=== PATIENT | female | born 1965 | race Asian ===

== ENCOUNTER 2023-08-15 23:42 | Inpatient (IN) | payer MEDICAID ==
[~2023-08-15] VITALS: Ht 152.4 cm; Wt 63.5 kg
[2023-08-16] MEDS ORDERED: CHOL400C5 PO (00:18)
[2023-08-16] MEDS ORDERED: INSU100V36 SQ (00:18)
[2023-08-16] MEDS ORDERED: LISI10TA29 PO (00:18)
[2023-08-16] MEDS ORDERED: ALLO100T56 PO (00:18)
[2023-08-16] MEDS ORDERED: ASCO500C18 PO (00:18)
[2023-08-16] MEDS ORDERED: INSU100I26 SQ (00:18)
[2023-08-16] MEDS ORDERED: DULA0.75 SQ (00:18)
[2023-08-16] MEDS ORDERED: AMLO10TA59 PO (00:18)
[2023-08-16] MEDS ORDERED: ATOR20TA PO (00:18)
[2023-08-16] MEDS ORDERED: HYDR25TA4 PO (00:18)
[2023-08-16] MEDS ORDERED: METO50TA16 PO (00:18)
[2023-08-16] MEDS ORDERED: METO25TA6 PO (00:18)
[2023-08-16] MEDS ORDERED: VANCOMYCIN IV 1,000 MG in IV DEXTROSE 5% 250 ML IV ONE (01:15)
[2023-08-16] MEDS ORDERED: IV NORMAL SALINE 1000 ML BAG IV ONE (01:15)
[2023-08-16] MEDS ORDERED: CLINDAMYCIN PHOSPHATE IV 600 MG in IV DEXTROSE 5% 100 ML IV ONE (01:15)
[2023-08-16] MEDS ORDERED: ONDANSETRON 4 MG/2 ML VIAL IV ONE ×2 (01:30→06:30)
[2023-08-16] MEDS ORDERED: HYDROMORPHONE 1 MG/1 ML DISP.SYRIN IV ONE ×2 (01:30→06:30)
[2023-08-16] MEDS ORDERED: VANCOMYCIN IV 200 ML ONE (01:32)
[2023-08-16] MEDS ORDERED: ONDANSETRON 4 MG/2 ML VIAL ONE ×2 (01:32→06:41)
[2023-08-16] MEDS ORDERED: HYDROMORPHONE 1 MG/1 ML DISP.SYRIN ONE ×2 (01:32→06:30)
[2023-08-16] MEDS ORDERED: CLINDAMYCIN 600 MG PIGGYBACK**ER OMNI IV ONE (01:33)
[2023-08-16 01:44] LABS: CALCIUM 8.8 mg/dL (8.5-10.1); CARBON DIOXIDE 27 mmol/L (21-32); CHLORIDE 102 mmol/L (98-107); CREATININE 1.1 mg/dL (0.6-1.3); GLUCOSE 108 mg/dL (74-106); POTASSIUM 3.2 mmol/L (3.5-5.1); SODIUM SERUM 139 mmol/L (136-145); UREA NITROGEN, BLOOD 21 mg/dL (7-18)
[2023-08-16 01:50] LABS: BASOPHILS % (AUTO) 0.5 % (0.0-2.0); EOSINOPHILS # (AUTO) 0.4 K/uL (0.0-0.7); EOSINOPHILS % (AUTO) 4.1 % (0.0-7.0); HEMATOCRIT 44.7 % (31.2-41.9); HEMOGLOBIN 15.5 g/dL (10.9-14.3); LYMPHOCYTES # (AUTO) 1.6 K/uL (0.8-4.8); MEAN CORPUSCULAR HGB CONC 35 g/dL (32.3-35.6); MEAN CORPUSCULAR VOLUME 89.8 fL (75.5-95.3); MONOCYTES # (AUTO) 0.7 K/uL (0.1-1.30); MONOCYTES % (AUTO) 7.7 % (0.0-11.0); NEUTROPHILS # (AUTO) 6.7 K/uL (1.8-8.9); NEUTROPHILS % (AUTO) 70.7 % (38.5-71.5); PLATELET COUNT (AUTO) 255 K/uL (179-408); RED BLOOD CELL COUNT(AUTO) 4.98 MIL/uL (3.63-4.92); RED CELL DISTRIBUTION WIDTH 12.4 % (12.3-17.7); WHITE BLOOD COUNT (AUTO) 9.5 K/uL (3.8-11.8)
[2023-08-16 01:52] LABS: DIFFERENTIAL COMMENT 1
[2023-08-16 01:58] LABS: ALANINE AMINOTRANSFERASE 26 U/L (14-59); ALKALINE PHOSPHATASE 122 U/L (50-136); ASPARTATE AMINOTRANSFERASE 17 U/L (15-37); BILIRUBIN,DIRECT 0.1 mg/dL (0.0-0.2); BILIRUBIN,TOTAL 0.3 mg/dL (0.2-1.0); NT-PRO BNP 73 pg/mL (0-125); TOTAL PROTEIN, SERUM 7.2 g/dL (6.4-8.2)
[2023-08-16] MEDS ORDERED: ACETAMINOPHEN 325 MG TABLET PO PRN (05:45)
[2023-08-16] MEDS ORDERED: REMEDY ESSENTIAL ZINC PASTE 113 GM TP PRN (05:45)
[2023-08-16] MEDS ORDERED: ONDANSETRON 4 MG/2 ML VIAL IV PRN (05:45)
[2023-08-16] MEDS ORDERED: TEMAZEPAM 15 MG CAPSULE PO PRN (05:45)
[2023-08-16] MEDS ORDERED: MAGNESIUM HYDROXIDE 30 ML LIQUID UDC PO PRN (05:45)
[2023-08-16] MEDS ORDERED: DEXTROSE 50% 50 ML DISP.SYRIN IV PRN (05:45)
[2023-08-16] MEDS: PANTOPRAZOLE SODIUM 40 MG TABLET.DR PO SCH (07:42)
[2023-08-16] MEDS: BLOOD SUGAR DIAGNOSTIC 1 EACH STRIP VI SCH ×4 (07:43→20:25)
[2023-08-16] MEDS: INSULIN REGULAR, HUMAN 300 UNIT/3 ML VIAL SQ PRN ×4 (07:45→20:24)
[2023-08-16] MEDS: IV NS 1000 ML 1,000 ML IV PRN ×2 (07:48→23:12)
[2023-08-16] MEDS: POTASSIUM CHLORIDE 20 MEQ TAB.PRT.SR PO SCH ×2 (12:21→14:03)
[2023-08-16] MEDS: HYDROCODONE/APAP 5-325MG TABLET PO PRN ×2 (13:16→20:35)
[2023-08-16] MEDS ORDERED: MEROPENEM 1 G in IV NORMAL SALINE 100 ML IV SCH (14:00)
[2023-08-16] MEDS ORDERED: LISI20TA30 PO (14:58)
[2023-08-16] MEDS ORDERED: ATOR40TA PO (14:58)
[2023-08-16] MEDS ORDERED: ACET-2030 PO (15:01)
[2023-08-16] MEDS ORDERED: METO-356 PO (15:01)
[2023-08-16] MEDS ORDERED: IBUP-1953 PO (15:03)
[2023-08-16 16:00] VITALS: BP 145/84; TEMP 97.9; O2SAT 97
[2023-08-16] MEDS: AMLODIPINE 10 MG TABLET PO SCH (16:54)
[2023-08-16] MEDS: METOPROLOL SUCCINATE XL 25 MG TAB.SR.24H PO SCH (16:58)
[2023-08-16] MEDS ORDERED: ASCORBIC ACID 500 MG TABLET PO SCH (17:00)
[2023-08-16] MEDS: ATORVASTATIN 40 MG TABLET PO SCH (20:16)
[2023-08-16 20:38] VITALS: BP 144/90; TEMP 99; O2SAT 98
[2023-08-16] MEDS ORDERED: INSULIN GLARGINE,HUM 300 UNITS/3 ML CARTRIDGE SQ SCH (21:00)
[2023-08-17] MEDS: HYDROCODONE/APAP 10-325 MG TABLET PO PRN ×3 (02:06→20:31)
[2023-08-17] MEDS ORDERED: VANCOMYCIN IV 1,000 MG in IV DEXTROSE 5% 250 ML IV SCH (02:30)
[2023-08-17 04:50] VITALS: BP 154/79; TEMP 98.6; O2SAT 96
[2023-08-17] MEDS: PANTOPRAZOLE SODIUM 40 MG TABLET.DR PO SCH (06:05)
[2023-08-17 06:20] LABS: CALCIUM 7.8 mg/dL (8.5-10.1); CREATININE 1.1 mg/dL (0.6-1.3); MAGNESIUM 1.6 mg/dL (1.8-2.4); PHOSPHOROUS 2.4 mg/dL (2.5-4.9); POTASSIUM 3.5 mmol/L (3.5-5.1)
[2023-08-17 06:30] LABS: THYROID STIMULATING HORMONE 1.699 mIU/mL (0.358-3.740)
[2023-08-17] MEDS: BLOOD SUGAR DIAGNOSTIC 1 EACH STRIP VI SCH ×4 (06:39→20:33)
[2023-08-17 06:47] LABS: BASOPHILS # (AUTO) 0.1 K/UL (0.0-0.2); BASOPHILS % (AUTO) 0.9 % (0.0-2.0); DIFFERENTIAL COMMENT 0; EOSINOPHILS # (AUTO) 0.4 K/uL (0.0-0.7); EOSINOPHILS % (AUTO) 5.6 % (0.0-7.0); HEMATOCRIT 38.7 % (31.2-41.9); HEMOGLOBIN 13.2 g/dL (10.9-14.3); LYMPHOCYTES # (AUTO) 1.5 K/uL (0.8-4.8); LYMPHOCYTES % (AUTO) 22.1 % (20.5-51.5); MEAN CORPUSCULAR HEMOGLOBIN 30.8 uug (24.7-32.8); MEAN CORPUSCULAR HGB CONC 34 g/dL (32.3-35.6); MEAN CORPUSCULAR VOLUME 90.2 fL (75.5-95.3); MONOCYTES # (AUTO) 0.4 K/uL (0.1-1.30); MONOCYTES % (AUTO) 6.6 % (0.0-11.0); NEUTROPHILS # (AUTO) 4.4 K/uL (1.8-8.9); NEUTROPHILS % (AUTO) 64.8 % (38.5-71.5); PLATELET COUNT (AUTO) 213 K/uL (179-408); RED BLOOD CELL COUNT(AUTO) 4.29 MIL/uL (3.63-4.92); RED CELL DISTRIBUTION WIDTH 12.4 % (12.3-17.7); WHITE BLOOD COUNT (AUTO) 6.8 K/uL (3.8-11.8)
[2023-08-17 08:00] VITALS: BP 147/90; TEMP 97.6; O2SAT 98
[2023-08-17] MEDS ORDERED: NEUTRA PHOS PACKET PO ONE (09:00)
[2023-08-17] MEDS: HYDROCHLOROTHIAZIDE 25 MG TABLET PO SCH (09:24)
[2023-08-17] MEDS: AMLODIPINE 10 MG TABLET PO SCH (09:24)
[2023-08-17] MEDS: METOPROLOL SUCCINATE XL 25 MG TAB.SR.24H PO SCH (09:24)
[2023-08-17] MEDS: MAGNESIUM SULFATE/D5W 100 ML IV SCH ×2 (09:32→11:44)
[2023-08-17 11:13] VITALS: BP 138/77; TEMP 98.6; O2SAT 96
[2023-08-17] MEDS: INSULIN REGULAR, HUMAN 300 UNIT/3 ML VIAL SQ PRN ×3 (11:59→20:37)
[2023-08-17] MEDS ORDERED: diphenhydrAMINE 25 MG CAP PO PRN (12:00)
[2023-08-17] MEDS: MEROPENEM 0.5 G in IV NORMAL SALINE 50 ML IV SCH ×3 (12:53→21:35)
[2023-08-17 15:08] VITALS: BP 132/88; TEMP 98; O2SAT 96
[2023-08-17] MEDS: MORPHINE SULFATE 2 MG/1 ML DISP.SYRIN IV PRN (16:45)
[2023-08-17] MEDS: ATORVASTATIN 40 MG TABLET PO SCH (20:27)
[2023-08-17 20:32] VITALS: BP 131/71; TEMP 98.6; O2SAT 97
[2023-08-17] MEDS: INSULIN GLARGINE,HUM 300 UNITS/3 ML CARTRIDGE SQ SCH (20:35)
[2023-08-18] MEDS: VANCOMYCIN IV 1,000 MG in IV DEXTROSE 5% 250 ML IV SCH (00:37)
[2023-08-18 04:00] VITALS: BP 128/76; TEMP 98; O2SAT 96
[2023-08-18] MEDS: MEROPENEM 0.5 G in IV NORMAL SALINE 50 ML IV SCH ×3 (05:29→23:06)
[2023-08-18] MEDS: PANTOPRAZOLE SODIUM 40 MG TABLET.DR PO SCH (06:13)
[2023-08-18] MEDS: BLOOD SUGAR DIAGNOSTIC 1 EACH STRIP VI SCH ×4 (06:23→22:59)
[2023-08-18] MEDS: HYDROCHLOROTHIAZIDE 25 MG TABLET PO SCH (09:14)
[2023-08-18] MEDS: SODIUM HYPOCHLORITE 0.125% (QUARTER STRENGTH) 473 ML BOTTLE TP SCH (09:15)
[2023-08-18] MEDS: AMLODIPINE 10 MG TABLET PO SCH (09:15)
[2023-08-18] MEDS: METOPROLOL SUCCINATE XL 25 MG TAB.SR.24H PO SCH (09:15)
[2023-08-18] MEDS: BACITRACIN ZINC OINT 15 GM TUBE TOP SCH (09:16)
[2023-08-18 11:14] VITALS: BP 143/76; TEMP 98.4; O2SAT 96
[2023-08-18] MEDS: INSULIN REGULAR, HUMAN 300 UNIT/3 ML VIAL SQ PRN ×3 (11:57→23:03)
[2023-08-18] MEDS: MORPHINE SULFATE 2 MG/1 ML DISP.SYRIN IV PRN ×2 (13:39→19:47)
[2023-08-18 15:13] VITALS: BP 129/74; TEMP 98.2; O2SAT 96
[2023-08-18] MEDS: IV NS 1000 ML 1,000 ML IV PRN (17:42)
[2023-08-18] MEDS: HYDROCODONE/APAP 10-325 MG TABLET PO PRN (18:29)
[2023-08-18 20:00] VITALS: BP 135/75; TEMP 97.7; O2SAT 97
[2023-08-18] MEDS: ATORVASTATIN 40 MG TABLET PO SCH (22:55)
[2023-08-18] MEDS: INSULIN GLARGINE,HUM 300 UNITS/3 ML CARTRIDGE SQ SCH (23:02)
[2023-08-19] MEDS: HYDROCODONE/APAP 10-325 MG TABLET PO PRN ×2 (00:32→10:11)
[2023-08-19] MEDS: VANCOMYCIN IV 1,000 MG in IV DEXTROSE 5% 250 ML IV SCH ×2 (02:10→20:29)
[2023-08-19 04:00] VITALS: BP 107/71; TEMP 97.8; O2SAT 97
[2023-08-19] MEDS: MEROPENEM 0.5 G in IV NORMAL SALINE 50 ML IV SCH ×3 (05:59→22:55)
[2023-08-19] MEDS: PANTOPRAZOLE SODIUM 40 MG TABLET.DR PO SCH (06:40)
[2023-08-19] MEDS: BLOOD SUGAR DIAGNOSTIC 1 EACH STRIP VI SCH ×4 (06:44→21:06)
[2023-08-19 07:41] LABS: CREATININE 0.9 mg/dL (0.6-1.3); POTASSIUM 2.9 mmol/L (3.5-5.1)
[2023-08-19 08:07] LABS: CALCIUM 9.1 mg/dL (8.5-10.1)
[2023-08-19] MEDS: METOPROLOL SUCCINATE XL 25 MG TAB.SR.24H PO SCH (08:45)
[2023-08-19] MEDS: HYDROCHLOROTHIAZIDE 25 MG TABLET PO SCH (08:46)
[2023-08-19] MEDS: AMLODIPINE 10 MG TABLET PO SCH (08:46)
[2023-08-19] MEDS: BACITRACIN ZINC OINT 15 GM TUBE TOP SCH (08:50)
[2023-08-19] MEDS: SODIUM HYPOCHLORITE 0.125% (QUARTER STRENGTH) 473 ML BOTTLE TP SCH (08:50)
[2023-08-19] MEDS ORDERED: POTASSIUM CHLORIDE 20 MEQ TAB.PRT.SR PO ONE ×2 (11:00→14:00)
[2023-08-19 11:45] VITALS: BP 149/83; TEMP 98.2; O2SAT 94
[2023-08-19] MEDS: INSULIN REGULAR, HUMAN 300 UNIT/3 ML VIAL SQ PRN ×2 (12:15→21:10)
[2023-08-19] MEDS: MORPHINE SULFATE 2 MG/1 ML DISP.SYRIN IV PRN ×2 (15:34→20:30)
[2023-08-19 16:27] VITALS: BP 108/71; TEMP 97.3; O2SAT 94
[2023-08-19] MEDS: IV NS 1000 ML 1,000 ML IV PRN (17:56)
[2023-08-19 20:25] VITALS: BP 114/79; TEMP 99; O2SAT 95
[2023-08-19] MEDS: ATORVASTATIN 40 MG TABLET PO SCH (20:29)
[2023-08-19] MEDS: INSULIN GLARGINE,HUM 300 UNITS/3 ML CARTRIDGE SQ SCH (21:11)
[2023-08-20 04:30] VITALS: BP 129/79; TEMP 98.3; O2SAT 95
[2023-08-20] MEDS: MEROPENEM 0.5 G in IV NORMAL SALINE 50 ML IV SCH ×3 (05:18→21:45)
[2023-08-20] MEDS: MORPHINE SULFATE 2 MG/1 ML DISP.SYRIN IV PRN ×2 (05:19→11:39)
[2023-08-20] MEDS: PANTOPRAZOLE SODIUM 40 MG TABLET.DR PO SCH (06:08)
[2023-08-20] MEDS: BLOOD SUGAR DIAGNOSTIC 1 EACH STRIP VI SCH ×4 (06:30→21:43)
[2023-08-20 06:57] LABS: BASOPHILS # (AUTO) 0.1 K/UL (0.0-0.2); BASOPHILS % (AUTO) 0.8 % (0.0-2.0); EOSINOPHILS # (AUTO) 0.6 K/uL (0.0-0.7); EOSINOPHILS % (AUTO) 5.9 % (0.0-7.0); HEMATOCRIT 44.3 % (31.2-41.9); HEMOGLOBIN 15.4 g/dL (10.9-14.3); LYMPHOCYTES # (AUTO) 1.1 K/uL (0.8-4.8); LYMPHOCYTES % (AUTO) 11.3 % (20.5-51.5); MEAN CORPUSCULAR HEMOGLOBIN 30.8 uug (24.7-32.8); MEAN CORPUSCULAR HGB CONC 35 g/dL (32.3-35.6); MEAN CORPUSCULAR VOLUME 88.7 fL (75.5-95.3); MONOCYTES # (AUTO) 0.7 K/uL (0.1-1.30); MONOCYTES % (AUTO) 6.9 % (0.0-11.0); NEUTROPHILS # (AUTO) 7.3 K/uL (1.8-8.9); NEUTROPHILS % (AUTO) 75.1 % (38.5-71.5); PLATELET COUNT (AUTO) 383 K/uL (179-408); RED BLOOD CELL COUNT(AUTO) 4.99 MIL/uL (3.63-4.92); RED CELL DISTRIBUTION WIDTH 12.2 % (12.3-17.7); WHITE BLOOD COUNT (AUTO) 9.7 K/uL (3.8-11.8)
[2023-08-20 07:01] LABS: DIFFERENTIAL COMMENT 1
[2023-08-20 07:27] LABS: ALBUMIN 2.8 g/dL (3.4-5.0); BILIRUBIN,TOTAL 0.3 mg/dL (0.2-1.0); CALCIUM 9.9 mg/dL (8.5-10.1); MAGNESIUM 1.8 mg/dL (1.8-2.4); PHOSPHOROUS 3.4 mg/dL (2.5-4.9); POTASSIUM 3.5 mmol/L (3.5-5.1); TOTAL PROTEIN, SERUM 7.2 g/dL (6.4-8.2)
[2023-08-20 08:45] VITALS: BP 112/70; TEMP 98.2; O2SAT 97
[2023-08-20] MEDS ORDERED: POTASSIUM CHLORIDE 20 MEQ TAB.PRT.SR PO ONE (09:15)
[2023-08-20] MEDS: AMLODIPINE 10 MG TABLET PO SCH (09:57)
[2023-08-20] MEDS: HYDROCHLOROTHIAZIDE 25 MG TABLET PO SCH (09:57)
[2023-08-20] MEDS: BACITRACIN ZINC OINT 15 GM TUBE TOP SCH (09:58)
[2023-08-20] MEDS: METOPROLOL SUCCINATE XL 25 MG TAB.SR.24H PO SCH (09:58)
[2023-08-20] MEDS: SODIUM HYPOCHLORITE 0.125% (QUARTER STRENGTH) 473 ML BOTTLE TP SCH (09:59)
[2023-08-20 11:23] VITALS: BP 103/67; TEMP 97.8; O2SAT 97
[2023-08-20] MEDS: INSULIN REGULAR, HUMAN 300 UNIT/3 ML VIAL SQ PRN ×2 (11:51→16:45)
[2023-08-20] MEDS: VANCOMYCIN IV 1,000 MG in IV DEXTROSE 5% 250 ML IV SCH (13:59)
[2023-08-20 16:00] VITALS: BP 123/75; TEMP 98; O2SAT 97
[2023-08-20] MEDS: HYDROCODONE/APAP 10-325 MG TABLET PO PRN (16:34)
[2023-08-20] MEDS: IV NS 1000 ML 1,000 ML IV PRN (16:35)
[2023-08-20 20:00] VITALS: BP 119/71; TEMP 98.9; O2SAT 96
[2023-08-20] MEDS: INSULIN GLARGINE,HUM 300 UNITS/3 ML CARTRIDGE SQ SCH (21:00)
[2023-08-20] MEDS: HYDROCODONE/APAP 5-325MG TABLET PO PRN (21:45)
[2023-08-20] MEDS: ATORVASTATIN 40 MG TABLET PO SCH (21:45)
[2023-08-20 22:00] VITALS: BP 119/71; TEMP 98.9; O2SAT 96
[2023-08-21 04:00] VITALS: BP 122/75; TEMP 98.4; O2SAT 97
[2023-08-21] MEDS: MEROPENEM 0.5 G in IV NORMAL SALINE 50 ML IV SCH ×2 (05:44→13:02)
[2023-08-21] MEDS: IV NS 1000 ML 1,000 ML IV PRN (05:59)
[2023-08-21] MEDS: PANTOPRAZOLE SODIUM 40 MG TABLET.DR PO SCH (06:07)
[2023-08-21] MEDS: VANCOMYCIN IV 1,000 MG in IV DEXTROSE 5% 250 ML IV SCH (08:29)
[2023-08-21] MEDS: METOPROLOL SUCCINATE XL 25 MG TAB.SR.24H PO SCH (08:52)
[2023-08-21] MEDS: AMLODIPINE 10 MG TABLET PO SCH (08:52)
[2023-08-21] MEDS: HYDROCHLOROTHIAZIDE 25 MG TABLET PO SCH (08:52)
[2023-08-21] MEDS: BACITRACIN ZINC OINT 15 GM TUBE TOP SCH (08:53)
[2023-08-21] MEDS: BLOOD SUGAR DIAGNOSTIC 1 EACH STRIP VI SCH ×4 (08:53→21:07)
[2023-08-21] MEDS: SODIUM HYPOCHLORITE 0.125% (QUARTER STRENGTH) 473 ML BOTTLE TP SCH (08:53)
[2023-08-21] MEDS: HYDROCODONE/APAP 5-325MG TABLET PO PRN (09:10)
[2023-08-21] MEDS ORDERED: BACITRACIN ZINC TOP (11:30)
[2023-08-21] MEDS ORDERED: INSU100V28 SQ (11:30)
[2023-08-21] MEDS ORDERED: DEXT50DI8 IV (11:30)
[2023-08-21] MEDS ORDERED: Blood Sugar Diagnostic VI (11:30)
[2023-08-21] MEDS ORDERED: SODI473S8 TP (11:30)
[2023-08-21] MEDS ORDERED: DIPH25CA49 PO (11:30)
[2023-08-21] MEDS ORDERED: MERO1VIA23 IV (11:30)
[2023-08-21] MEDS ORDERED: TEMA15CA PO (11:30)
[2023-08-21] MEDS ORDERED: HYDR-3972 PO (11:30)
[2023-08-21] MEDS ORDERED: INSU100V7 SQ (11:30)
[2023-08-21] MEDS ORDERED: LISI10TA29 PO (11:30)
[2023-08-21] MEDS ORDERED: PANT40TA49 PO (11:30)
[2023-08-21] MEDS ORDERED: RXVAN XX (11:30)
[2023-08-21] MEDS ORDERED: ACET325T53 PO (11:30)
[2023-08-21] MEDS ORDERED: MAGN400O6 PO (11:30)
[2023-08-21] MEDS ORDERED: ATOR10TA PO (11:30)
[2023-08-21] MEDS ORDERED: ACID1TAB4 PO (11:30)
[2023-08-21 12:04] VITALS: BP 115/73; TEMP 97.8; O2SAT 97
[2023-08-21] MEDS: INSULIN REGULAR, HUMAN 300 UNIT/3 ML VIAL SQ PRN ×2 (13:20→19:00)
[2023-08-21] MEDS: HYDROCODONE/APAP 10-325 MG TABLET PO PRN (19:36)
== END 2023-08-21 21:08 | DRG 383 ==
LOC: ER 08-16 00:15 → MEDSURG3 08-16 05:26
PROVIDERS: ADMIT Nurse Practitioner Acute Care; ATTEND Internal Medicine
PROC: 0H9MXZZ Drainage of Right Foot Skin, External Approach (ICD-10-PCS; principal; 2023-08-17)
PROC: 02HV33Z Insertion of Infusion Device into Superior Vena Cava, Percutaneous Approach (ICD-10-PCS; 2023-08-21)
DX: L03.115 Cellulitis of right lower limb (principal); U07.1 COVID-19; E11.621 Type 2 diabetes mellitus with foot ulcer; E11.42 Type 2 diabetes mellitus with diabetic polyneuropathy; L97.518 Non-pressure chronic ulcer of other part of right foot with other specified severity; M84.48XA Pathological fracture, other site, initial encounter for fracture; S91.301A Unspecified open wound, right foot, initial encounter; L02.611 Cutaneous abscess of right foot; E11.65 Type 2 diabetes mellitus with hyperglycemia; E78.5 Hyperlipidemia, unspecified; E66.9 Obesity, unspecified; Z68.27 Body mass index [BMI] 27.0-27.9, adult; E87.6 Hypokalemia; F17.210 Nicotine dependence, cigarettes, uncomplicated; M10.9 Gout, unspecified; Z79.899 Other long term (current) drug therapy; Z79.4 Long term (current) use of insulin; I45.9 Conduction disorder, unspecified; Z88.0 Allergy status to penicillin; Z88.6 Allergy status to analgesic agent; I10 Essential (primary) hypertension; X58.XXXA Exposure to other specified factors, initial encounter; Y92.89 Other specified places as the place of occurrence of the external cause
CPT/HCPCS: 36415; 36569; 71045; 73630; 83605; 83735; 84100; 84443; 84484; 85025; 85730; 87040; 93005; A4606; A4663; G0378; J1170; J1815; J2185; J2270; J2405; J3370; J3475; J3490; J7040; J7050